=== PATIENT | female | born 1990 | race Caucasian/White ===

== ENCOUNTER 2020-10-09 21:38 | Emergency (ER) | payer OTHER ==
[2020-10-09 22:08] VITALS: BP 95/60; PULSE 81; TEMP 98.2; BMI 18.8
[2020-10-10] MEDS ORDERED: KETOROLAC TROMETHAMINE 30 MG/1 ML VIAL IM ONE ×2 (00:34→00:36)
[2020-10-10] MEDS ORDERED: IBUPROFEN 600 MG TABLET (FP) PO ONE (00:43)
== END 2020-10-10 01:09 | disposition home or self-care (01) ==
LOC: JER 21:38
PROC: 3E0234Z Introduction of Serum, Toxoid and Vaccine into Muscle, Percutaneous Approach (ICD-10-PCS; principal; 2020-10-09)
DX: T23.132A Burn of first degree of multiple left fingers (nail), not including thumb, initial encounter (principal)
CPT/HCPCS: 99284-25

== ENCOUNTER 2021-02-22 16:30 | Emergency (ER) | payer OTHER ==
[2021-02-22 16:58] VITALS: BP 108/77; PULSE 88; BMI 18.8
[2021-02-22] MEDS ORDERED: DEXAMETHASONE SOD PHOSPHATE 10 MG/1 ML VIAL IM ONE (17:04)
[2021-02-22] MEDS ORDERED: DEXAMETHASONE SOD PHOSPHATE 10 MG/1 ML VIAL ONE (17:04)
[2021-02-22] MEDS ORDERED: ALBUTEROL SO4 2.5/IPRATROPIUM 0.5 INH SOL 3 ML VIAL.NEB. NEB SCH (17:15)
== END 2021-02-22 18:32 | disposition home or self-care (01) ==
LOC: JER 16:30
PROC: 3E023NZ Introduction of Analgesics, Hypnotics, Sedatives into Muscle, Percutaneous Approach (ICD-10-PCS; principal; 2021-02-22)
PROC: 3E0F7GC Introduction of Other Therapeutic Substance into Respiratory Tract, Via Natural or Artificial Opening (ICD-10-PCS; 2021-02-22)
DX: J06.9 Acute upper respiratory infection, unspecified (principal)
CPT/HCPCS: 71046-TC-FY; 87804; 87807; 94640; 96372; 99284-25; C9803; J1100; U0003; U0005

== ENCOUNTER 2021-08-11 18:35 | Emergency (ER) | payer OTHER ==
[2021-08-11 19:39] VITALS: BP 96/64; PULSE 106; TEMP 98.8; BMI 18.5
[2021-08-11] MEDS ORDERED: ONDANSETRON 4 MG/2 ML VIAL IVPB ONE (20:40)
[2021-08-11] MEDS ORDERED: SODIUM CHLORIDE 1,000 ML IV STA (20:40)
[2021-08-11] MEDS ORDERED: ACETAMINOPHEN 1000 MG/100 ML BAG IVPB ONE (20:40)
[2021-08-11] MEDS ORDERED: ACETAMINOPHEN INJECTION 100 ML IVPB ONE (20:46)
[2021-08-11] MEDS ORDERED: ONDANSETRON 4 MG/2 ML VIAL ONE (20:46)
[2021-08-11 21:21] LABS: BASO % 0.1 % (0-2.0); EOS % 0.3 % (0-4.5); HEMATOCRIT 44.1 % (32.4-45.2); HEMOGLOBIN 14.5 GM/dL (10.7-15.3); LYMPH % 9.8 % (8-40); MCH 26.6 pg (25.7-33.7); MCHC 32.8 g/dl (32.0-36.0); MEAN CELL VOLUME 80.9 fl (80-96); MEAN PLT VOLUME 9.8 fl (7.5-11.1); MONO % 5.7 % (3.8-10.2); NEUT % 84.1 % (42.8-82.8); PLATELET COUNT 219 10^3/uL (134-434); RBC 5.45 M/mm3 (3.60-5.2); RDW 14.5 % (11.6-15.6); WHITE BLOOD COUNT 8.8 K/mm3 (4.0-10.0)
[2021-08-11 21:22] LABS: PH,URINE 6.5 (5.0-8.0); URINE APPEARANCE CLEAR; URINE BILIRUBIN NEGATIVE (NEGATIVE); URINE COLOR YELLOW; URINE GLUCOSE (UA) NEGATIVE (NEGATIVE); URINE KETONE 1+ (NEGATIVE); URINE LEUK ESTERASE NEGATIVE (NEGATIVE); URINE NITRITE NEGATIVE (NEGATIVE); URINE PROTEIN TRACE (NEGATIVE)
[2021-08-11 21:25] LABS: HCG,QUALITATIVE URINE Negative
[2021-08-11 21:46] LABS: BLOOD UREA NITROGEN 13.1 mg/dL (7-18)
[2021-08-11 21:47] LABS: CALCIUM 9.3 mg/dL (8.5-10.1)
[2021-08-11 21:48] LABS: ALBUMIN 4.5 g/dl (3.4-5.0)
[2021-08-11 21:51] LABS: CREATININE 0.8 mg/dL (0.55-1.3)
[2021-08-11 21:52] LABS: TOT PROT 8.2 g/dl (6.4-8.2)
== END 2021-08-12 00:57 | disposition home or self-care (01) ==
LOC: JER 18:35
PROC: 3E0333Z Introduction of Anti-inflammatory into Peripheral Vein, Percutaneous Approach (ICD-10-PCS; principal; 2021-08-11)
PROC: 3E033GC Introduction of Other Therapeutic Substance into Peripheral Vein, Percutaneous Approach (ICD-10-PCS; 2021-08-11)
PROC: 3E0337Z Introduction of Electrolytic and Water Balance Substance into Peripheral Vein, Percutaneous Approach (ICD-10-PCS; 2021-08-11)
DX: R10.11 Right upper quadrant pain (principal)
CPT/HCPCS: 36415; 74176-TC; 80053; 81003; 84703; 85025; 99284-25